=== PATIENT | female | born 1955 | race African-American/Black ===

== ENCOUNTER → 2017-02-24 | Day surgery (SDC) | payer OTHER ==
[~2017-02-24] VITALS: Ht 162.6 cm; Wt 77.0 kg
[~2017-02-24] MED LIST: *RESP: ALBUTEROL 2.5 MG/3 ML NEB (PRN) PERIprocedural Use ONLY NEB ONE; ACETAMINOPHEN/HYDROcodone 325 MG/5 MG TAB PO PRN; ALBUAER3 INH; AMLO10TA2 PO; ASPI1TAB57 PO; BUPIVACAINE HCL PF 0.5% 30 ML VIAL ONE; CHLORHEXIDINE GLUCONATE 2 % 1 PACK (2 CLOTHS) TOPICAL PRN; DICL75TA PO; DO NOT ADM ANY ANTICOAGULANT DRUGS PRN; ENAL20TA PO; GLYB1.253 PO; GLYCOPYRROLATE 1 MG/5 ML SYRINGE IV PUSH ONE; IPRASOL INH; LACTATED RINGER'S 1000 ML IV PRN; LIDOCAINE HCL 1% PF 5 ML SYRINGE OTHER ONE; METO50TA PO; METOPROLOL TARTRATE 25 MG TAB PO PRN; MIDAZOLAM HCL 2 MG/2 ML VIAL IV ONE; NEOSTIGMINE 3 MG/3 ML SYR IV ONE; OMEP20TA93 PO; PHENYLEPH/NS 1000 MCG/10 ML SYR IV ONE; POVIDONE IODINE 5% (ANTISEPSIS KIT) 4 APPLICATIONS EACH NARE PRN; PROPOFOL 200 MG/20 ML AMP IV ONE; RESP: ALBUTEROL 2.5 MG/IPRATROPIUM 0.5 MG NEB (PRN) ONE; ROCURONIUM INJ 50 MG/5 ML SYRINGE IV PUSH ONE; SODIUM CHLORID 0.9% 500 ML IV PRN; TEMA15CA PO; TIOT1AER INH; TRIA37.53 PO; ceFAZolin INJ 1,000 MG VIAL IV ONE
--- NOTE | 2017-02-24 14:57 | PD.OP ---
cc: Georgina Mahmood MD Operative Report Date of Surgery: Feb 24, 2017 Preoperative Diagnosis: (1) Mediastinal adenopathy Postoperative Diagnosis: same Procedure: Diagnostic mediastinoscopy Anesthesia: Dr. Hamm Surgeon: Georgina Mahmood Hospice Liaison(s): BRENDA Lei Operation and Findings: The risks, benefits, complications, treatment options, and expected outcomes were discussed with the patient. The possibilities of reaction to medication, pulmonary aspiration, perforation of organs, bleeding, recurrent infection, the need for additional procedures, failure to diagnose a condition, and creating a complication requiring transfusion or operation were discussed with the patient. The patient concurred with the proposed plan, giving informed consent. The site of surgery properly noted/marked. The patient was taken to Operating Room, identified as Emmanuelle Ely and the procedure verified as Mediastinoscopy. A Time Out was held and the above information confirmed. Standard monitoring lines and Garibay catheter were placed. General anesthesia was induced. The patient was prepped and draped and a short transverse incision was performed in the suprasternal notch and dissection was carried in the midline down to the pretracheal fascia and then in the plane into the mediastinum. Level 4R paratracheal lymph nodes were sampled consistent with the chest CT findings. Fragments were submitted to Pathology for permanent section. Hemostasis was satisfactory. The scope was withdrawn and the incision was closed with 3-0 Vicryl in the platysma and running subcuticular Monocryl. Sterile dressings were placed. At the end of the operation, all sponge, instruments, and needle counts were correct. Findings: Level 4R paratracheal lymph nodes sampled Estimated Blood Loss: minimal Specimens: Level 4R paratracheal lymph node fragments Georgina Mahmood MD Feb 24, 2017 14:57
--- NOTE | 2017-02-24 16:13 | RADRPT ---
EXAM DATE/TIME: 02/24/2017 15:30 [facility] COMPARISON: No previous studies available for comparison. INDICATIONS : Post medistinoscopy MEDICAL HISTORY : Hypertension. Chronic obstructive pulmonary disease. lung mass, gerd SURGICAL HISTORY : None. ENCOUNTER: Initial ACUITY: 1 day PAIN SCORE: 0/10 LOCATION: Bilateral chest FINDINGS: A single portable frontal view the chest shows prominence of right paratracheal stripe. This terminat es at the level of the clavicular head. The study is somewhat lordotic in position. There is a nodula r appearance to the right hilum. Heart is at the upper limits of normal in terms of size. No pneumoth orax or pneumomediastinum. No infiltrate or effusion. CONCLUSION: Prominence to the right hilum and mediastinum. I cannot exclude a mass or adenopathy. No pneumothorax or pneumomediastinum. Ramin Odonnell Jr., MD on February 24, 2017 at 16:10 Board Certified Radiologist. This report was verified electronically.
[2017-02-24 17:20] VITALS: BP 141/85; PULSE 88; RESP 20; TEMP 97.4; O2SAT 93
== END | disposition home or self-care (01) ==
LOC: HSDC 05:30
PROVIDERS: ATTEND Thoracic Surgery (Cardiothoracic Vascular Surgery)
DX: R59.0 Localized enlarged lymph nodes (principal); J44.9 Chronic obstructive pulmonary disease, unspecified; I10 Essential (primary) hypertension
CPT/HCPCS: 00528; 39402; 71010; 86077; 86850; 86870; 86900; 86901; 86902; 86920; 86922; 88305; 94640; 94664; J0690; J2250; J2370; J2710; J3010; J7120; J7613; 88307